=== PATIENT | male | born 1980 | race Caucasian/White ===

== ENCOUNTER 2019-09-09 12:01 | Emergency (ER) | payer OTHER, SELFPAY ==
[2019-09-09 12:14] VITALS: BP 164/92; PULSE 79; RESP 16; TEMP 36.6; O2SAT 98
[2019-09-09 12:54] LABS: Occult Blood Negative (Negative)
--- NOTE | 2019-09-09 12:54 | ED.GENADULT ---
HPI - General Adult General Chief complaint: GI Bleed Stated complaint: blood in stool Time Seen by Provider: 09/09/19 12:40 Source: patient Mode of arrival: ambulatory Limitations: no limitations History of Present Illness HPI narrative: pt presents to the ed with a complaint of rectal pain and blood with stools. He states that he has pain, almost like his butthole is tearing open and then he notices blood. He has had this for over 7 months. He has been seen for it before, but he never followed up like he was supposed to do. He has no fevers or chills, no N/V, he has no abdominal pain, Onset (ago): month(s) (>7) Quality: burning (pain in anus) Pain Consistency: intermittent Exacerbating factors: other (having a BM) Associated symptoms: denies other symptoms Related Data Home Medications Medication Instructions Recorded Confirmed No Home Medications 09/09/19 09/09/19 Allergies Allergy/AdvReac Type Severity Reaction Status Date / Time No Known Allergies Allergy Unverified 04/02/15 14:33 Review of Systems Review of Systems: All systems reviewed & are unremarkable except as noted in HPI and below PMFSH Family History Family History Mother Family history of mental disorder Family history of Parkinson's disease Social History Social History (Updated 06/28/19 @ 14:33 by John Reyez MD) Smoking status: Current every day smoker Alcohol intake: current Exam Const: General: healthy appearing and no acute distress Nutritional Appearance: obese Orientation/consciousness: patient oriented x3 HENMT: Head: normal to inspection Mouth: Yes moist mucous membranes Eyes: Conjunctivae: conjunctivae normal Neck: Neck: normal visual inspection Chest: Chest palpation & inspection: normal inspection of the chest Resp: Effort & Inspection: normal respiratory effort Auscultation: clear to auscultation bilaterally Cardio: Rate: regular rate Rhythm: regular rhythm GI: GI Palp: Yes Soft to palpation, No Tenderness to palpation present (GI), No Guarding due to palpation present (GI), No Rigid due to palpation, No Palpable mass present and No Rebound tenderness present Percussion: Yes normal to percussion Auscultation: normal bowel sounds Rectal Exam: normal sphincter tone, No fecal impaction and No hemorrhoids : Other: anus- no hemmoriod, nl external appearance, tender at 12:00 area, small fissure visualized; no swelling or erythema Back/Spine/Pelvis: Back: no CVA tenderness Neuro: General: patient oriented x3 Gait exam (Neuro): Normal gait present Extrem: General: normal to inspection Psych: Appearance: well kempt Mental Status: mental status grossly normal Affect: normal affect Attitude: cooperative Course Course Emergency Course: hernia, fissure, vs IBD; d/w pt that he needs to f/u with his MD and possibly a retanner. He will take metamucil daily, clean area with moist wipes and use topical hydrocortisone cream Vital Signs Vital signs: Vital Signs Temperature 36.6 C 09/09/19 12:14 Pulse Rate 79 09/09/19 12:14 Respiratory Rate 16 09/09/19 12:14 Blood Pressure 164/92 H 09/09/19 12:14 Pulse Oximetry 98 09/09/19 12:14 Temperature 36.6 C 09/09/19 12:14 Pulse Rate 79 09/09/19 12:14 Respiratory Rate 16 09/09/19 13:14 Blood Pressure 164/92 H 09/09/19 12:14 Pulse Oximetry 98 09/09/19 12:14 Medical Decision Making Vital Signs Vital Signs: Vital Signs Temperature 36.6 C 09/09/19 12:14 Pulse Rate 79 09/09/19 12:14 Respiratory Rate 16 09/09/19 12:14 Blood Pressure 164/92 H 09/09/19 12:14 Pulse Oximetry 98 09/09/19 12:14 Temperature 36.6 C 09/09/19 12:14 Pulse Rate 79 09/09/19 12:14 Respiratory Rate 16 09/09/19 13:14 Blood Pressure 164/92 H 09/09/19 12:14 Pulse Oximetry 98 09/09/19 12:14 Lab Data Labs: Lab Results 09/09/19 Range/Units 12
[2019-09-09 13:14] VITALS: RESP 16
== END 2019-09-09 13:16 | disposition home or self-care (01) ==
PROVIDERS: Emergency Provider Emergency Medicine
DX: K60.2 Anal fissure, unspecified (principal)
CPT/HCPCS: 99282; 99283

== ENCOUNTER 2019-09-15 09:40 | Outpatient (CLI) | payer OTHER, SELFPAY ==
--- NOTE | ~2019-09-15 | XR_ITS ---
XR abdomen/kub 1V DATE: 09/15/2019 10:40 INDICATION: Abdominal pain TECHNIQUE: 2 supine AP views COMPARISON: 06/19/[address] abdomen pelvis FINDINGS: There is no evidence of bowel obstruction. The psoas shadows are intact. No visceromegaly o r significant abnormal calcification is noted. Included skeletal structures are unremarkable. IMPRESSION: No significant abnormality Reviewed, dictated and finalized at [facility] Reviewed, dictated and finalized at [facility]. IMPRESSION: No significant abnormality
[2019-09-15 10:21] LABS: Basophils Absolute Auto 0.04 K/mm3 (0.00-0.10); Basophils Percent Auto 0.7 % (0.0-1.0); Eosinophils Absolute Auto 0.21 K/mm3 (0.02-0.50); Eosinophils Percent Auto 3.4 % (1.0-6.0); Hematocrit 46.5 % (40.0-54.0); Hemoglobin 15.3 g/dL (14.0-18.0); Immature Granulocyte Absolute 0.02 K/mm3 (0.00-0.00); Immature Granulocyte Percent A 0.3 % (0.0-0.0); Lymphocytes Absolute Auto 2.36 K/mm3 (1.10-4.50); Lymphocytes Percent Auto 38.6 % (18.0-42.0); Mean Corpuscular HGB Conc 32.9 g/dL (32.0-36.0); Mean Corpuscular Hemoglobin 29.4 pg (27.0-31.0); Mean Corpuscular Volume 89.4 fL (78.0-102.0); Mean Platelet Volume 9.3 fl (8.7-11.0); Monocytes Absolute Auto 0.49 K/mm3 (0.10-0.90); Platelet Count Result 361 K/mm3 (150-420); Red Cell Distribution Width 12.5 % (11.6-14.4); White Blood Count 6.1 K/mm3 (4.8-10.8)
[2019-09-15 10:34] LABS: Creatinine Urine 106.17 mg/dL (40-278)
[2019-09-15 10:44] LABS: MALB Creatinine Ratio 34.5 mg/g (0-30); Microalbumin Urine Random 36.7 mg/L
[2019-09-15 11:56] LABS: Alanine Aminotransferase 39 U/L (16-63); Albumin Level 4.2 g/dL (3.4-5.0); Alkaline Phosphatase 72 U/L (46-116); Anion Gap 13.3 mmol/L (7-16); Aspartate Amino Transferase 22 U/L (15-37); Bilirubin,Total 0.3 mg/dL (0.00-1.00); Blood Urea Nitrogen 11 mg/dL (7-18); Calcium 9.2 mg/dL (8.5-10.1); Carbon Dioxide 29 mmol/L (21-32); Chloride 103 mmol/L (98-108); Cholesterol 247 mg/dL (0-200); Estimated Glomerular Filt Rate > 60; Free T4 Free Thyroxine 0.76 ng/dL (0.76-1.46); Glucose 90 mg/dL (70-99); HDL Direct 39 mg/dL (40-60); LDL Cholesterol Calculated 172 mg/dL (<130); Osmolality Calculated 291 mOsm/kg (285-295); Potassium 4.3 mmol/L (3.5-5.1); Sodium 141 mmol/L (136-145); Thyroid Stimulating Hormone 1.34 uIU/mL (0.36-3.74); Total Protein 7.5 g/dL (6.4-8.2); Triglycerides 180 mg/dL (0-150)
[2019-09-17 19:51] LABS: Vitamin D 25 Hydroxy 20 ng/mL (30-100)
[2019-09-17 20:19] LABS: Total Triiodothyronine (T3) 129 ng/dL (76-181)
== END 2019-09-15 09:41 | disposition home or self-care (01) ==
LOC: CHSIMG 09:44
PROVIDERS: PCP Family Medicine; Visit Provider Nurse Practitioner Family
DX: R10.30 Lower abdominal pain, unspecified (principal); E78.5 Hyperlipidemia, unspecified; I10 Essential (primary) hypertension; R53.83 Other fatigue
CPT/HCPCS: 36415; 74018; 80053; 80061; 82043; 82306; 84439; 84443; 84480; 85025

== ENCOUNTER 2021-01-04 15:40 | Observation (INO) | payer OTHER, SELFPAY ==
[2021-01-04] VITALS (8 sets, daily range): BP systolic 101–132; BP diastolic 58–88; PULSE 80–102; RESP 16–30; TEMP 36.6–37.9; O2SAT 96–98
--- NOTE | ~2021-01-04 | XR_ITS ---
EXAMINATION: XR chest 1V portable INDICATION: Shortness of breath and chest pain TECHNIQUE: Portable AP chest at 1703 hours COMPARISON: 05/19/2017 FINDINGS: There are patchy bilateral airspace opacities. No pleural effusion or pneumothorax is ident ified. The cardiomediastinal silhouette is normal. IMPRESSION: 1. Patchy bilateral airspace opacities, likely pneumonia. Reviewed, dictated and finalized at location [facility].
--- NOTE | ~2021-01-04 | XR_ITS ---
EXAMINATION: XR chest 1V portable 01/05/2021 09:14 INDICATION: Shortness of breath. Covid positive. Cough. PROCEDURE: AP portable chest COMPARISON: Comparison to multiple prior studies sequentially, with oldest reviewed study dated 09/2016. FINDINGS: The lungs are clear. The cardiomediastinal silhouette is within normal limits. There are no pleural effusions. There is no pneumothorax suspected. IMPRESSION: 1: NO ACUTE CARDIOPULMONARY DISEASE. Reviewed, dictated and finalized at location [facility].
--- NOTE | 2021-01-04 15:50 | ECG_ITS ---
Measurements Intervals [place] Rate: 103 P: 24 WA: 129 QRS: 49 QRSD: 85 T: 61 QT: 329 QTc: 432 Interpretive Statements SINUS TACHYCARDIA DELAYED PRECORDIAL R/S TRANSITION BASELINE ARTIFACT- II, III, AVR, AVF, V3 BORDERLINE ECG Electronically Signed On 01-04-2021 17:06:38 CDT by Aayush Lockwood D.O.
--- NOTE | 2021-01-04 15:55 | ED.SOB ---
HPI - SOB/Dyspnea General Chief Complaint: Shortness of Breath/Dyspnea Stated Complaint: AMB Time Seen by Provider: 01/04/21 15:49 Source: patient and EMS Mode of arrival: EMS Limitations: other (coughinig and moaning) History of Present Illness HPI Narrative: 40-year-old man comes in today via EMS complaining of headache, chest pain, nausea, cough, shortness of breath and fever intermittently over the last 5 days. Patient states that his son was diagnosed with COVID just prior to the onset of his illness. Patient told EMS that he had coughed up some blood. 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 He denies smoking. Cough and chest pain are worse with deep breaths. MD elicited complaint: shortness of breath, cough and chest pain Onset (ago): day(s) (5) Timing: constant and progressively worsening Severity: severe Exacerbating factors: coughing and inspiration Relieving factors: nothing Known history of: other ( Pulmonary histoplasmosis) Associated symptoms: chest pain, pain with inspiration, fever, cough, sputum production and nausea/vomiting Treatment prior to arrival: oxygen Related Data Home oxygen amount: none Home Medications Medication Instructions Recorded Confirmed No Home Medications 09/09/19 09/09/19 Allergies Allergy/AdvReac Type Severity Reaction Status Date / Time No Known Allergies Allergy Verified 01/04/21 15:55 Review of Systems Review of Systems: All systems reviewed & are unremarkable except as noted in HPI and below Constitutional: Constitutional: Reports chills, Reports fatigue and Reports fever(s) Eyes: Eyes: Denies change in vision and Denies photophobia ENT: Reports nasal congestion and Reports sore throat Cardiovascular: Cardiovascular: Reports chest pain and Denies radiating jaw, neck or arm pain Respiratory: Respiratory: Reports chest congestion and Reports cough Comments: hemoptysis Gastrointestinal: Gastrointestinal: Reports nausea and Reports vomiting Musculoskeletal: Musculoskeletal: Denies arthralgias and Denies joint swelling Integumentary/Breasts: Skin/Breast: Denies pruritus, Denies erythema and Denies rash Neurologic: Denies vertigo, Denies dizziness, Denies syncope, Reports headache(s), Denies focal weakness and Denies numbness Hematologic/Lymphatic: Hematologic/Lymphatic: Denies easy bleeding and Denies easy bruising Allergic/Immunologic: Allergic/Immunologic: Denies lip swelling and Denies throat swelling PMF Past Medical History Medical History (Updated 01/04/21 @ 17:50 by John Reyez MD) Pulmonary histoplasmosis Surgical History Surgical History (Updated 01/04/21 @ 16:05 by John Reyez MD) S/P excision of lipoma Family History Family History Mother Family history of mental disorder Family history of Parkinson's disease Social History Social History (Updated 01/04/21 @ 16:01 by John Reyez MD) Smoking status: Current every day smoker Alcohol intake: current Substance use: never Living arrangements: with family Exam Const: General: alert, diaphoretic and ill appearing acutely Orientation/consciousness: patient oriented x3 Other: moderate fair acute distress. HENMT: Ears: external ears normal, TM's normal bilaterally and EAC's normal Mouth: Yes moist mucous membranes Throat: posterior oropharynx normal Eyes: Conjunctivae: conjunctivae normal Pupils: Equal, round and reactive pupils present EOM: EOMs intact bilaterally Chest: Chest palpation & inspection: normal inspection of the chest Resp: Effort & Inspection: labored ( Mildly), no retractions and tachypneic Auscultation: rales ( bibasilar), no rhonchi and no wheezes Cardio: Rate: tachycardic Rhythm: regular rhythm GI: GI Palp: Yes Soft to palpation and No Tenderness to palpation present (GI) Skin: General skin exam: normal color, no jaundice and no pallor Rashes:
[2021-01-04] MEDS: ALBUTEROL SULFATE (*SP) INHALER 4 PUFF INHALATION ×2 (16:09→20:34)
[2021-01-04] MEDS: HYDROmorphone HCL INJ (*CRX) 2 MG/ML VIAL 0.5 MG IV PUSH ×2 (16:10→18:15)
[2021-01-04] MEDS: ONDANSETRON INJ 4 MG/2 ML VIAL IV PUSH (16:11)
[2021-01-04] MEDS: SODIUM CHLORIDE 0.9% IV 1,000 ML 999 ML IV CONT (16:11)
[2021-01-04 16:31] LABS: Base Excess ABG -0.2 mmol/L (0-2); HCO3 ABG 21.2 mmol/L (23-29); PCO2 ABG 26.9 mmHg (35-45); PO2 ABG 50.9 mmHg (80-90); pH ABG 7.51 (7.35-7.45)
[2021-01-04 16:33] LABS: Basophils Absolute Auto 0.02 K/mm3 (0.00-0.10); Basophils Percent Auto 0.4 % (0.0-1.0); Device ROOM AIR; Eosinophils Absolute Auto 0.11 K/mm3 (0.02-0.50); Eosinophils Percent Auto 1.9 % (1.0-6.0); Hematocrit 43.8 % (40.0-54.0); Immature Granulocyte Absolute 0.02 K/mm3 (0.00-0.00); Immature Granulocyte Percent A 0.4 % (0.0-0.0); Lymphocytes Absolute Auto 1.37 K/mm3 (1.10-4.50); Mean Corpuscular HGB Conc 34.2 g/dL (32.0-36.0); Mean Corpuscular Hemoglobin 30.2 pg (27.0-31.0); Mean Corpuscular Volume 88.1 fL (78.0-102.0); Mean Platelet Volume 9.7 fl (8.7-11.0); Modified Allen's Test Pass; Monocytes Absolute Auto 0.34 K/mm3 (0.10-0.90); Neutrophils Absolute Auto 3.8 K/mm3 (1.7-7.2); Neutrophils Percent Auto 67.3 % (50.0-70.0); Oxygen Saturation ABG 90.1 % (95-97); Platelet Count Result 264 K/mm3 (150-420); Red Blood Count 4.97 M/mm3 (4.70-6.10); Red Cell Distribution Width 12.2 % (11.6-14.4); Site Drawn RIGHT RADIAL; White Blood Count 5.7 K/mm3 (4.8-10.8)
[2021-01-04 16:47] LABS: D Dimer 0.28 mg/L (0.19-0.50)
[2021-01-04 16:52] LABS: Alanine Aminotransferase 38 U/L (16-63); Albumin Level 4.1 g/dL (3.4-5.0); Alkaline Phosphatase 60 U/L (46-116); Anion Gap 17 mmol/L (8-16); Aspartate Amino Transferase 25 U/L (15-37); Bilirubin,Total 0.3 mg/dL (0.00-1.00); Blood Urea Nitrogen 12 mg/dL (7-18); Calcium 8.5 mg/dL (8.5-10.1); Carbon Dioxide 22 mmol/L (21-32); Chloride 100 mmol/L (98-108); Estimated Glomerular Filt Rate 55; Glucose 92 mg/dL (70-99); Osmolality Calculated 287 mOsm/kg (285-295); Potassium 3.7 mmol/L (3.5-5.1); Sodium 139 mmol/L (136-145); Total Protein 7.6 g/dL (6.4-8.2); Troponin I < 4.0 ng/L (0.00-60.4)
[2021-01-04 16:53] LABS: SARS-CoV-2 Ag Positive (Negative)
[2021-01-04 17:18] LABS: SARS-CoV-2 RNA PCR Positive (Negative)
[2021-01-04 17:56] LABS: Add Urine Microscopic? YES; Appearance Urine Clear (Clear); Bilirubin Urine Negative (Negative); Blood Urine Negative (Negative); Color Urine Yellow (Yellow); Glucose Urine UA Negative (Negative); Ketones Urine Negative (Negative); Leukocyte Esterase Ur Negative LEU/UL (Negative); Nitrate Urine Negative (Negative); Protein Urine 2+ (Negative); Specific Grav Ur 1.025 (1.010-1.020)
[2021-01-04 18:06] LABS: Bacteria Urine Trace /hpf; Mucus Urine Few /lpf; RBC Urine 0-2 /hpf (0-2); WBC Urine 0-3 /hpf (0-3)
[2021-01-04] MEDS: DEXAMETHASONE 4 MG TABLET 8 MG PO (18:06)
--- NOTE | 2021-01-04 20:14 | PC.NURSE ---
Patient admitted to room 211 with isolation precautions, alert and oriented x 3 and is oriented ot room and call light.
[2021-01-04] MEDS: SODIUM CHLORIDE 0.9% IV 1,000 ML 150 ML IV CONT (20:34)
[2021-01-04] MEDS: HYDROcodone/acetaminophen (*CRX) 5-325 MG TABLET 1 TAB PO (22:54)
[2021-01-05] VITALS (7 sets, daily range): BP systolic 96–170; BP diastolic 50–90; PULSE 63–100; RESP 16–24; TEMP 36.1–37.1; O2SAT 93–97
[2021-01-05 05:46] LABS: Hematocrit 39.5 % (40.0-54.0); Hemoglobin 13.2 g/dL (14.0-18.0); Mean Corpuscular HGB Conc 33.4 g/dL (32.0-36.0); Mean Corpuscular Hemoglobin 30.1 pg (27.0-31.0); Mean Platelet Volume 9.7 fl (8.7-11.0); Platelet Count Result 237 K/mm3 (150-420); Red Blood Count 4.39 M/mm3 (4.70-6.10); Red Cell Distribution Width 12.5 % (11.6-14.4); White Blood Count 3.7 K/mm3 (4.8-10.8)
[2021-01-05 06:03] LABS: Alanine Aminotransferase 33 U/L (16-63); Albumin Level 3.6 g/dL (3.4-5.0); Alkaline Phosphatase 50 U/L (46-116); Anion Gap 12 mmol/L (8-16); Aspartate Amino Transferase 22 U/L (15-37); Bilirubin,Total 0.3 mg/dL (0.00-1.00); Blood Urea Nitrogen 14 mg/dL (7-18); Calcium 8.3 mg/dL (8.5-10.1); Carbon Dioxide 25 mmol/L (21-32); Chloride 101 mmol/L (98-108); Estimated Glomerular Filt Rate > 60; Glucose 145 mg/dL (70-99); Osmolality Calculated 289 mOsm/kg (285-295); Potassium 4.6 mmol/L (3.5-5.1); Sodium 138 mmol/L (136-145)
[2021-01-05] MEDS: ALBUTEROL SULFATE (*SP) INHALER 4 PUFF INHALATION ×4 (06:03→20:15)
[2021-01-05 06:12] LABS: Band Neutrophils Percent 0 % (0-6); Lymphocytes Absolute Manual 0.37 K/mm3 (1.1-4.5); Lymphocytes Percent Manual 10 % (18-44); Monocytes Absolute Manual 0.25 K/mm3 (0.1-0.90); Monocytes Percent Manual 7 % (3-9); Neutrophils Absolute Manual 3.07 K/mm3 (1.3-6.7); Neutrophils Percent Manual 83 % (46-73); Platelet Estimate Adequate (Adequate); Total Cells Counted 100
[2021-01-05] MEDS: DEXAMETHASONE 2 MG TABLET 6 MG PO (08:20)
[2021-01-05] MEDS: HYDROmorphone HCL INJ (*CRX) 2 MG/ML VIAL 0.5 MG IV PUSH (08:55)
--- NOTE | 2021-01-05 09:21 | PC.NURSE ---
patient refuses to have ABG drawn, states it hurt real bad last night and will not do it again
--- NOTE | 2021-01-05 09:24 | PC.NURSE ---
Hospitalist Rebecca Godfrey in to speak with patient regarding refusal of ABG
--- NOTE | 2021-01-05 09:30 | PC.NURSE ---
Lab notified, patient now agreeable to have ABG done
[2021-01-05 09:37] LABS: D Dimer 0.35 mg/L (0.19-0.50)
[2021-01-05 09:48] LABS: Base Excess ABG -4.2 mmol/L (0-2); Device NASAL CANNULA; HCO3 ABG 20.3 mmol/L (23-29); Modified Allen's Test Pass; PCO2 ABG 35.8 mmHg (35-45); PO2 ABG 82.8 mmHg (80-90); Site Drawn RIGHT RADIAL; pH ABG 7.37 (7.35-7.45)
[2021-01-05 10:01] LABS: Lactic Acid Reflex 3.2 mmol/L (0.4-2.0)
[2021-01-05] MEDS: BUDESONIDE/FORMOTEROL (*SP) 160-4.5 MCG 6 GM INH 2 PUFF INHALATION ×2 (10:18→20:16)
[2021-01-05] MEDS: LIDOCAINE HCL 2% VISC SOLN 15 ML UDC PO (10:18)
[2021-01-05] MEDS: BENZONATATE 100 MG CAPSULE 200 MG PO ×3 (10:19→17:45)
[2021-01-05] MEDS: guaiFENesin 12 HR 600 MG TABCR 1200 MG PO ×2 (10:20→20:08)
--- NOTE | 2021-01-05 12:01 | PM.IMHP ---
H&P: HPI History of Present Illness Date/Time: 01/05/21 12:01 this is a 40-year-old male who presented to our emergency department via EMS with complaints of headache chest discomfort, nausea, cough, fever and shortness for approximately 5 days. Patient has a past medical history of histoplasmosis. During this assessment patient was very anxious, with uncontrolled cough and per patient shortness of breath, sats in the 90s. Patient notes that his throat and chest is burning him and he cannot control his coughing he also had a headache. Patient's vital signs 96.9, 72, 22, 95%, blood pressure 96/68,wbc3.7, hgb 13.2, hct 39.5,plt 237,d-dimer 0.35,pH7.51,CO2 26.9,O2 50.9,HCO 20.3,Na 138, K 4.6, Cr 1.20, Glucose 145, lactic 3.2, liver function test within normal limits, chest x-ray indicates pneumonia, EKG sinus tach 103. Patient being admitted for Covid. The patient denies, palpitation, extremity numbness, lightheadedness, dizziness, constipation, diarrhea, chills, or fever. <ZHANNA Cagle - Last Filed: 01/05/21 12:18> Chief Complaint: Shortness of breath, nausea, uncontrolled cough, shortness of breath, fever <ZHANNA Cagle - Last Filed: 01/05/21 12:18> Review of Systems Review of Systems: Narrative: A 14 organ system Review of Systems was performed and pertinent positives included in the HPI, otherwise remaining ROS is negative. <ZHANNA Cagle - Last Filed: 01/05/21 12:18> [facility] Past Medical History Medical History: Medical History (Updated 01/04/21 @ 17:50 by John Reyez MD) Pulmonary histoplasmosis <ZHANNA Cagle - Last Filed: 01/05/21 12:18> Surgical History Surgical History: Surgical History (Updated 01/04/21 @ 16:05 by John Reyez MD) S/P excision of lipoma <ZHANNA Cagle - Last Filed: 01/05/21 12:18> Family History Family History: Family History Mother Family history of mental disorder Family history of Parkinson's disease <ZHANNA Cagle - Last Filed: 01/05/21 12:18> Social History Social History: Social History (Updated 01/04/21 @ 16:01 by John Reyez MD) Smoking status: Current every day smoker Tobacco type: cigarettes Second hand tobacco smoke exposure: Yes Alcohol intake: current Substance use: unknown Substance use type: marijuana Living arrangements: with family Gender identity (if verbalized by the patient): Male Spiritual care concerns: No <ZHANNA Cagle - Last Filed: 01/05/21 12:18> Meds Home Medications and Allergies Home medications: Home Medications Medication Instructions Recorded Confirmed Type No Home Medications 09/09/19 01/04/21 History <ZHANNA Cagle - Last Filed: 01/05/21 12:18> Allergies/Adverse reactions: Allergies Allergy/AdvReac Type Severity Reaction Status Date / Time No Known Allergies Allergy Verified 01/04/21 15:55 <ZHANNA Cagle - Last Filed: 01/05/21 12:18> Vital Signs Vital Signs - 24 hr 01/04/21 15:49 01/04/21 16:12 01/04/21 16:13 Temperature 98.2 F Pulse Rate 100 102 H 102 H Respiratory Rate 30 H 26 H 26 H Blood Pressure 107/88 Pulse Oximetry 98 98 96 01/04/21 17:50 01/04/21 18:33 01/04/21 19:20 Temperature 98 F 97.8 F Pulse Rate 94 90 90 Respiratory Rate 16 19 18 Blood Pressure 121/87 120/70 132/88 Pulse Oximetry 97 98 97 01/04/21 20:16 01/04/21 23:56 01/05/21 04:00 Temperature 100.3 F H 100.3 F H 96.9 F L Pulse Rate 80 85 63 Respiratory Rate 20 20 20 Blood Pressure 101/58 L 101/58 L 96/68 L Pulse Oximetry 98 96 01/05/21 08:53 01/05/21 08:55 Temperature Pulse Rate 100 72 Respiratory Rate 24 H 22 H Blood Pressure Pulse Oximetry 93 95 <Rebecca Godfrey, [employer] - Last Filed: 01/05/21 12:18> Exam Narrative: Exam Narrative: GENERAL: Anxious in no apparent distress. HEAD: no
[2021-01-05 12:25] LABS: Reflex Lactic Acid Yes or No Add Lactic
[2021-01-05] MEDS: ACETAMINOPHEN 500 MG TABLET 1000 MG PO (18:22)
[2021-01-05] MEDS: traZODone HCL 50 MG TABLET PO (20:09)
[2021-01-05] MEDS: SODIUM CHLORIDE 0.9% IV 1,000 ML 150 ML IV CONT (22:37)
[2021-01-06] VITALS: BP 115/69; PULSE 77; RESP 20; TEMP 36.1; O2SAT 93
[2021-01-06] MEDS: ACETAMINOPHEN 500 MG TABLET 1000 MG PO (03:28)
[2021-01-06 04:00] VITALS: BP 116/76; PULSE 74; RESP 20; TEMP 36.2; O2SAT 98
[2021-01-06 05:26] LABS: Hematocrit 38.9 % (40.0-54.0); Hemoglobin 12.7 g/dL (14.0-18.0); Mean Corpuscular HGB Conc 32.6 g/dL (32.0-36.0); Mean Corpuscular Hemoglobin 29.3 pg (27.0-31.0); Mean Corpuscular Volume 89.6 fL (78.0-102.0); Mean Platelet Volume 9.7 fl (8.7-11.0); Platelet Count Result 235 K/mm3 (150-420); Red Blood Count 4.34 M/mm3 (4.70-6.10); Red Cell Distribution Width 12.4 % (11.6-14.4); White Blood Count 7.1 K/mm3 (4.8-10.8)
[2021-01-06 05:39] LABS: Alanine Aminotransferase 33 U/L (16-63); Albumin Level 3.2 g/dL (3.4-5.0); Alkaline Phosphatase 44 U/L (46-116); Anion Gap 10 mmol/L (8-16); Aspartate Amino Transferase 24 U/L (15-37); Bilirubin,Total 0.2 mg/dL (0.00-1.00); Blood Urea Nitrogen 16 mg/dL (7-18); Calcium 8.1 mg/dL (8.5-10.1); Carbon Dioxide 28 mmol/L (21-32); Chloride 104 mmol/L (98-108); Estimated Glomerular Filt Rate > 60; Glucose 113 mg/dL (70-99); Osmolality Calculated 296 mOsm/kg (285-295); Potassium 4.3 mmol/L (3.5-5.1); Sodium 142 mmol/L (136-145); Total Protein 6.3 g/dL (6.4-8.2)
[2021-01-06] MEDS: ALBUTEROL SULFATE (*SP) INHALER 4 PUFF INHALATION (06:30)
[2021-01-06] MEDS: SODIUM CHLORIDE 0.9% IV 1,000 ML 150 ML IV CONT (06:43)
[2021-01-06] MEDS: HYDROcodone/acetaminophen (*CRX) 10-325 MG TABLET 1 TAB PO (07:51)
[2021-01-06] MEDS: ONDANSETRON INJ 4 MG/2 ML VIAL IV PUSH (07:52)
[2021-01-06] MEDS: DEXAMETHASONE 2 MG TABLET 6 MG PO (07:55)
[2021-01-06 08:00] VITALS: BP 114/65; PULSE 70; PULSE 72; RESP 20; TEMP 36.8; O2SAT 93; O2SAT 98
[2021-01-06 09:00] VITALS: PULSE 80; RESP 20; O2SAT 96
--- NOTE | 2021-01-06 09:06 | PM.DS ---
DS: Admitting Diagnosis Admitting Diagnosis Remain isolation/quarantine means to stay separate from other people, so that sickness is not spread for 14 days. Your Local Health Department will be contacting you to verify that you have received and can follow these instructions. If you have not been contacted, please call your Local Health Department immediately! Follow these guidelines while in isolation: Stay home: Stay in your home or apartment until you are instructed that you can leave. If you need medical care, call ahead so that staff can prepare for your arrival. DO NOT go to your doctor?s office, an ER or urgent care center without informing them that you are coming, and that you have the coronavirus. (Call 911 if you have a medical emergency, and tell them you may have coronavirus.) Avoid public areas: Do not go to work, school or any public areas. This includes, but is not limited to, activities such as going to the grocery store, walking the dog, visiting the laundromat, going to the movies, picking up food, and attending zoroastrianism. STAY HOME. Avoid public transportation. Stay off of all public transportation like buses, subways, trains and planes; ride-sharing like Uber or Lyft; or taxis. STAY HOME. ? Separate yourself from other people and animals in your home: Stay away from others, even your partner or children: As much as possible, stay in a specific room and keep away from other people in your home. Use a separate bathroom from the rest of your household. If you must share a bathroom, someone in your household will need to clean the bathroom every time you use it by disinfecting door knobs, bathroom fixtures and other ``hightouch?? surfaces. Consider limiting contact with pets and other animals: That includes not snuggling, being kissed or getting licked by your pet, or sharing food. <ZHANNA Cagle - Last Filed: 01/06/21 09:38> DS: Discharge Diagnosis Discharge Diagnosis (1) 2019 novel coronavirus-infected pneumonia (NCIP): Code(s): U07.1 - COVID-19; J12.82 - Pneumonia due to coronavirus disease 2019 <ZHANNA Cagle - Last Filed: 01/06/21 09:38> Status: Acute <ZHANNA Cagle - Last Filed: 01/06/21 09:38> Assessment and Plan: Patient tested positive for Covid Chest x-ray indicate pneumonia repeat does not show pneumonia Continue dexamethasone x9 days Continue inhalers Patient started on Rocephin will discontinue on cefdinir Continue Tessalon Perles with guaifenesin ordered Continue pain medication WBC is 3.7>WNL Upon arrival [id number] >96.9> afebrile Blood gas has improved since admission pH 7.51>7.37 CO2 26.9>35.8 O2 50.9>82.8, bicarb 21.2>20.3 <ZHANNA Cagle - Last Filed: 01/06/21 09:38> (2) Acute renal failure: Qualifiers: Acute renal failure type: unspecified Qualified Code(s): N17.9 - Acute kidney failure, unspecified <ZHANNA Cagle - Last Filed: 01/06/21 09:38> Code(s): N17.9 - Acute kidney failure, unspecified <ZHANNA Cagle - Last Filed: 01/06/21 09:38> Status: Acute <ZHANNA Cagle - Last Filed: 01/06/21 09:38> Assessment and Plan: Resolved Secondary to dehydration Creatinine 1.44>1.20>1.00 <ZHANNA Cagle - Last Filed: 01/06/21 09:38> (3) Acute dehydration: Code(s): E86.0 - Dehydration <ZHANNA Cagle - Last Filed: 01/06/21 09:38> Status: Acute <ZHANNA Cagle - Last Filed: 01/06/21 09:38> Assessment and Plan: Resolved Patient received fluids <ZHANNA Cagle - Last Filed: 01/06/21 09:38> DS: Summary Hospital Course Hospital Course:
[2021-01-06] MEDS: BENZONATATE 100 MG CAPSULE 200 MG PO (10:09)
[2021-01-06] MEDS: guaiFENesin 12 HR 600 MG TABCR 1200 MG PO (10:09)
--- NOTE | 2021-01-06 13:47 | PC.NURSE ---
Pt discharged to home, discharge instructions given to pt. Pt instruction regarding isolation status until 01/13/21. Medications reviewed. Pt instructed to call his PCP for FU appointment after . Pt personal items sent with pt. Pt did verbalized understanding of instructions.
== END 2021-01-06 12:10 | disposition home or self-care (01) ==
LOC: CHSED 17:50 → CHS2ND 18:06
PROVIDERS: Nurse Practitioner; Admitting Provider Emergency Medicine; Emergency Provider Emergency Medicine; PCP Family Medicine; Visit Provider Emergency Medicine
DX: U07.1 COVID-19 (principal); E86.0 Dehydration; N17.9 Acute kidney failure, unspecified; J12.82 Pneumonia due to coronavirus disease 2019; B39.2 Pulmonary histoplasmosis capsulati, unspecified; F17.200 Nicotine dependence, unspecified, uncomplicated
CPT/HCPCS: 36415; 36600; 71045; 80053; 81001; 82805; 83605; 83735; 84484; 85025; 85027; 85380; 87040; 87426; 93005; 94640; 96361; 96365; 96374; 96375; 96376; 99285; A9270; C9803; G0378; J0696; J1170; J2405; J7030; J8540; U0003; U0005

== ENCOUNTER → 2021-01-22 03:27 | Outpatient (CLI) | payer OTHER, SELFPAY ==
[2021-01-23 03:40] LABS: SARS-CoV-2 RNA PCR Positive
== END ==
PROVIDERS: PCP Family Medicine; Visit Provider Family Medicine
DX: U07.1 COVID-19 (principal)
CPT/HCPCS: C9803; U0003; U0005

== ENCOUNTER 2023-01-01 04:24 | Emergency (ER) | payer BC, SELFPAY ==
[2023-01-01 04:27] VITALS: BP 142/97; PULSE 81; RESP 18; TEMP 36.9; O2SAT 97
--- NOTE | 2023-01-01 04:39 | ED.EYEPROB ---
HPI - Eye Problem General Chief complaint: Eye Problems Stated complaint: eye injury Source: patient Mode of arrival: ambulatory Limitations: no limitations History of Present Illness HPI Narrative: Was playing with his kids when cardboard hit his left eye last night. Now irritated, red, painful, and tearing chief complaint: eye pain, eye redness, eye injury and vision change Onset (ago): hour(s) Onset description: sudden Duration: constant Location: left eye Eye Symptoms: burning, redness, pain and foreign body sensation Place: home Mechanism: direct trauma Severity: severe Severity scale (1-10): >10 If Pain, Quality: sharp and stabbing Context: trauma Associated symptoms: none Treatments Prior to Arrival: none Related Data Allergies Allergy/AdvReac Type Severity Reaction Status Date / Time No Known Allergies Allergy Verified 01/01/23 04:26 Review of Systems Constitutional: Constitutional: Reports as per HPI and Reports no additional constitutional complaints Eyes: Eyes: Reports as per HPI and Reports no additional eye complaints ENT: Reports system reviewed and no additional complaints, except as documented and Reports as per HPI Cardiovascular: Cardiovascular: Reports as per HPI and Reports no additional cardiovascular complaints Respiratory: Respiratory: Reports as per HPI and Reports no additional respiratory complaints Gastrointestinal: Gastrointestinal: Reports as per HPI and Reports no additional gastrointestinal complaints Genitourinary: Genitourinary: Reports as per HPI Musculoskeletal: Musculoskeletal: Reports no additional musculoskeletal complaints and Reports as per HPI Integumentary/Breasts: Skin/Breast: Reports system reviewed and no additional complaints, except as docu and Reports as per HPI Neurologic: Reports system reviewed and no additional complaints, except as documented and Reports as per HPI Psychiatric: Psychiatric: Reports no additional psychiatric complaints and Reports as per HPI Endocrine: Endocrine: Reports no additional endocrine complaints and Reports as per HPI Hematologic/Lymphatic: Hematologic/Lymphatic: Reports no additional hematologic/lymphatic complaints and Reports as per HPI Allergic/Immunologic: Allergic/Immunologic: Reports no additional allergic/immunologic complaints and Reports as per HPI [facility] Past Medical History Medical History (Updated 01/01/23 @ 05:01 by Jean Pierre Zuleta MD) Pulmonary histoplasmosis Surgical History Surgical History (Updated 01/04/21 @ 16:05 by John Reyez MD) S/P excision of lipoma Family History Family History Mother Family history of mental disorder Family history of Parkinson's disease Social History Social History (Updated 01/04/21 @ 16:01 by John Reyez MD) Smoking status: Current every day smoker Tobacco type: cigarettes Second hand tobacco smoke exposure: Yes Alcohol intake: current Substance use: unknown Substance use type: marijuana Living arrangements: with family Gender identity (if verbalized by the patient): Male Spiritual care concerns: No Exam Const: General: healthy appearing Nutritional Appearance: well nourished Orientation/consciousness: patient oriented x3 Limitations: no limitations HENMT: Head: normal to inspection Ears: external ears normal Face/Nose/Sinus: Normal external nose present Face and sinus: normal facial exam Eyes: Pupils: Equal, round and reactive pupils present Direct Ophthalmoscopy: photophobia Other: conjunctival erythema/injection of the left eye. Resp: Effort & Inspection: normal respiratory effort Auscultation: clear to auscultation bilaterally Cardio: Rate: regular rate Rhythm: regular rhythm GI: GI Palp: Yes Soft to palpation Auscultation: normal bowel sounds Skin: General skin exam: normal color Rashes: no rashes Wounds: no wounds Neuro: General: patient
[2023-01-01] MEDS: TETRACAINE HCL 0.5% OPHTH SOLN 4 ML BTL 1 DROP EACH EYE (04:46)
[2023-01-01] MEDS: FLUORESCEIN SOD 1 MG/STRIP (04:46)
[2023-01-01] MEDS: MORPHINE SULFATE (*CRX) 4 MG/ML INJ IM (05:24)
[2023-01-01] MEDS: KETOROLAC 30 MG/ML VIAL (*BKC) IM (05:24)
[2023-01-01 05:35] VITALS: PULSE 71; RESP 16; O2SAT 97
--- NOTE | 2023-01-01 11:00 | PC.NURSE ---
prescriptions called to [facility] in [place], [facility] is closed. patient made aware he will not be able to get norco to day and will have to get that tomorrow from [facility]. RN called [facility] and canceled all eye drops to prevent duplicate fills.
== END 2023-01-01 05:36 | disposition home or self-care (01) ==
PROVIDERS: Emergency Provider Emergency Medicine; PCP Registered Nurse
DX: S05.02XA Injury of conjunctiva and corneal abrasion without foreign body, left eye, initial encounter (principal); F17.210 Nicotine dependence, cigarettes, uncomplicated; W22.8XXA Striking against or struck by other objects, initial encounter
CPT/HCPCS: 96372; 99284; J1885; J2270

== ENCOUNTER 2023-02-07 14:00 | Emergency (ER) | payer BC, SELFPAY ==
[2023-02-07] VITALS (7 sets, daily range): BP systolic 124–154; BP diastolic 72–96; PULSE 70–96; RESP 17–20; TEMP 36.5; O2SAT 95–99
--- NOTE | ~2023-02-07 | US_ITS ---
EXAMINATION: US scrotum doppler DATE: 02/07/2023 14:33 INDICATION: left testicular pain and swelling . TECHNIQUE: Grayscale and Doppler ultrasound images of the testes were obtained. COMPARISON: None. FINDINGS: The right testis measures 4.5 x 3.6 x 2.9 cm. The left testis measures 4.6 x 3.5 x 3.0 cm. No testicular mass. There is normal vascular flow to both testes. The right epididymis is normal with normal vascular flow. The left epididymis is enlarged, hyperemic, and heterogeneous. There is no hyd rocele. Varicocele evaluation was not completed due to pain. IMPRESSION: Sonographic findings that may represent left epididymitis in the appropriate clinical context. Reviewed, dictated and finalized at location K. IMPRESSION: Sonographic findings that may represent left epididymitis in the appropriate cl inical context.
--- NOTE | 2023-02-07 14:02 | ED.MALEGU ---
HPI - Male Genitourinary General Chief complaint: Urogenital-Male Stated complaint: TESTICLE PAIN Time Seen by Provider: 02/07/23 14:02 Source: patient and RN notes reviewed Mode of arrival: wheelchair Limitations: no limitations History of Present Illness HPI Narrative: patient states pain began at midnight woke him up from his sleep. He got progressively worse throughout the morning and got especially severe in the last 2-1/2 hours. Complaint: testicle pain Onset (ago): day(s) (since last night) Location: left testicle Radiation: left inguinal region Severity: severe Quality: aching and dull Relieving factors: none Exacerbating factors: none Associated symptoms: Reports swelling and nausea/vomiting ( nausea only) Related Data Allergies Allergy/AdvReac Type Severity Reaction Status Date / Time No Known Allergies Allergy Verified 02/07/23 14:05 Review of Systems Review of Systems: All systems reviewed & are unremarkable except as noted in HPI and below PMFSH Past Medical History Medical History (Updated 02/07/23 @ 15:06 by Dio Freitas MD) Hypercholesteremia Lipoma of other specified sites Pulmonary histoplasmosis Surgical History Surgical History S/P excision of lipoma Family History Family History Mother Family history of mental disorder Family history of Parkinson's disease Social History Social History Smoking status: Current every day smoker Tobacco type: cigarettes Second hand tobacco smoke exposure: Yes Alcohol intake: current Substance use: unknown Substance use type: marijuana Living arrangements: with family Gender identity (if verbalized by the patient): Male Spiritual care concerns: No Exam Const: General: healthy appearing, alert and ill appearing acutely Nutritional Appearance: well nourished Limitations: no limitations HENMT: Head: normal to inspection Ears: TM's normal bilaterally Face/Nose/Sinus: Normal external nose present Face and sinus: normal facial exam Mouth: Yes moist mucous membranes Eyes: Conjunctivae: conjunctivae normal Pupils: Equal, round and reactive pupils present EOM: EOMs intact bilaterally Neck: Neck: normal visual inspection Resp: Effort & Inspection: normal respiratory effort Auscultation: clear to auscultation bilaterally Cardio: Rate: regular rate Rhythm: regular rhythm GI: GI Palp: Yes Soft to palpation and No Tenderness to palpation present (GI) Auscultation: normal bowel sounds : Testes: epididymal tenderness on the left, testicular swelling on the left and testicular tenderness on the left and diffuse Back/Spine/Pelvis: Cervical Spine: cervical ROM normal Thoracic/Lumbar Spine: thoraco-lumbar ROM normal Skin: General skin exam: normal color Rashes: no rashes Neuro: General: patient oriented x3, moves all extremities and no focal motor deficits Cranial nerves: Yes CN's II-XII intact bilaterally Speech: normal speech Extrem: General: normal to inspection and no clubbing, cyanosis or edema Psych: Mental Status: mental status grossly normal Affect: normal affect Attitude: cooperative MDM - Male Genitourinary Differential Diagnosis Differential diagnosis: Likely epididymitis and other ( Testicular detorsion, direct hernia) Discharge Plan Discharge Clinical Impression: Epididymitis Patient Disposition: Home, Self-Care Condition: Stable Instructions: Epididymitis (ED) Prescriptions: New doxycycline hyclate 100 mg tablet 100 mg PO BID 10 Days Qty: 20 0RF hydrocodone-acetaminophen 5-325 mg tablet 1 tablet PO Q6H PRN (Reason: pain) Qty: 10 0RF Follow-up/Referrals: Marc,MD Mandeep [Primary Care Provider] - Time of Disposition: 15:11
[2023-02-07] MEDS: HYDROmorphone HCL INJ (*CRX) 2 MG/ML VIAL 1 MG IV PUSH (14:12)
--- NOTE | 2023-02-07 14:50 | PC.NURSE ---
patient still not able to pee at this time erp is aware.
== END 2023-02-07 15:23 | disposition home or self-care (01) ==
PROVIDERS: Emergency Provider Emergency Medicine; PCP Family Medicine
DX: N45.1 Epididymitis (principal); F17.210 Nicotine dependence, cigarettes, uncomplicated
CPT/HCPCS: 76870; 93976; 96374; 99284; J1170